=== PATIENT | male | born 1945 | race Caucasian/White ===

== ENCOUNTER 2018-03-22 15:43 | Emergency (ER) | payer OTHER ==
[~2018-03-22] VITALS: Ht 172.7 cm; Wt 106.6 kg
[~2018-03-22 15:43] MED LIST: LASIX40 MG PO
[2018-03-22] MEDS ORDERED: TERAZOSIN HCL2 M1 PO (15:51)
[2018-03-22] MEDS ORDERED: QUETIAPINE FUMA25 M1 PO (15:52)
[2018-03-22] MEDS ORDERED: Diltiazem180 MG PO (15:52)
[2018-03-22] MEDS ORDERED: PANTOPRAZOLE SO40 MG PO (15:54)
[2018-03-22] MEDS ORDERED: DICLO GEL1 EACH T (15:54)
[2018-03-22] MEDS ORDERED: AMITRIPTYLINE10 MG PO (15:55)
[2018-03-22] MEDS ORDERED: NEURONTIN100 MG PO (15:55)
[2018-03-22] MEDS ORDERED: WARFARIN SOD5 MG PO (15:55)
[2018-03-22] MEDS ORDERED: LANTUS SOL100 UNIT/1 SC (15:57)
[2018-03-22] MEDS ORDERED: LIPITOR40 MG PO (15:57)
[2018-03-22] MEDS ORDERED: SEN-O-TABS8.6 MG PO (15:58)
[2018-03-22] MEDS ORDERED: RENAL VITAMIN0.8 MG PO (15:58)
[2018-03-22] MEDS ORDERED: MONTELUKAST SOD10 MG PO (15:59)
[2018-03-22] MEDS ORDERED: CITALOPRAM20 MG PO (15:59)
[2018-03-22] MEDS ORDERED: DEMADEX20 M1 PO (16:01)
[2018-03-22] MEDS ORDERED: HUMIRA CRO40 MG/0.8 SQ (16:01)
[2018-03-22] MEDS ORDERED: ONDANSETRON4 MG SL (16:01)
[2018-03-22 16:32] LABS: BASO # 0.1 10*3/uL (0.0-0.1); BASO % 0.6 % (0.0-1.0); EOS # 0.4 10*3/uL (0.0-0.4); HEMATOCRIT 29.6 % (42.0-52.0); HEMOGLOBIN 10.2 g/dl (14.0-18.0); LYMPH # 2.7 10*3/uL (1.3-4.4); MEAN CELL VOLUME 102.4 fl (80.0-94.0); MEAN CORPUSCULAR HGB 35.3 pg (27.0-31.0); MEAN CORPUSCULAR HGB CONC 34.5 g/dl (33.0-37.0); MEAN PLATELET VOLUME 10.1 fl (9.6-12.3); MONO # 0.8 10*3/uL (0.1-1.0); MONO % 10.3 % (3.0-9.0); NEUT # 4.1 10*3/uL (2.3-7.9); NEUT % 50.5 % (47.0-73.0); NUCLEATED RED BLOOD CELL 0.2 % (0.0-0.0); PLATELET COUNT AUTOMATED 241 10*3/uL (130-400); RED BLOOD COUNT 2.89 10*6/uL (4.50-5.90); RED CELL DISTRI WIDTH 14.3 % (0-14.5); WHITE BLOOD COUNT 8.1 10*3/uL (4.8-10.8)
[2018-03-22 16:54] LABS: ALBUMIN 3.6 gm/dl (3.1-4.5); CREATININE 6.42 mg/dL (0.70-1.30); TOTAL PROTEIN 7.9 gm/dL (6.4-8.2)
== END 2018-03-22 17:24 | disposition home or self-care (01) ==
LOC: ED 15:43
PROVIDERS: Physician Assistant
DX: R11.2 Nausea with vomiting, unspecified (principal); G89.29 Other chronic pain; E11.40 Type 2 diabetes mellitus with diabetic neuropathy, unspecified; E11.22 Type 2 diabetes mellitus with diabetic chronic kidney disease; N18.6 End stage renal disease; M45.9 Ankylosing spondylitis of unspecified sites in spine; Z88.8 Allergy status to other drugs, medicaments and biological substances; Z79.01 Long term (current) use of anticoagulants; Z79.4 Long term (current) use of insulin; Z79.899 Other long term (current) drug therapy; Z99.2 Dependence on renal dialysis

== ENCOUNTER 2018-08-16 15:25 | Inpatient (IN) | payer MEDICARE, OTHER ==
[2018-08-16] VITALS (8 sets, daily range): BP systolic 106–192; BP diastolic 58–84
[~2018-08-16] VITALS: Ht 172.7 cm; Wt 101.6 kg
--- NOTE | ~2018-08-16 | PR ---
[place], [place] PROGRESS NOTE NAME: PARAM BARTH UNIT #: [id number] ROOM: 525 DOCTOR: ABIODUN ROJAS MD BIRTHDATE: [birth year] DOS: 08/18/2018 REASON FOR VISIT: Chest pain, hypertension and CHF. HISTORY OF PRESENT ILLNESS: The patient is feeling better. Denies any chest pain or palpitations. Breathing is much better. No PND, no orthopnea. He is wearing BiPAP at the time of my visit to him. REVIEW OF SYSTEMS: Review of the 10 systems negative except as mentioned above. PHYSICAL EXAMINATION: VITAL SIGNS: Blood pressure 120/72, pulse 70, respiratory rate 18, weight 101.6 kilos, BMI 34. RHYTHM STRIPS: The patient in sinus rhythm. PHYSICAL EXAMINATION: GENERAL: The patient is alert, comfortable, in no acute distress. HEENT: Pupils are round and equal, no jaundice. NECK: Supple, no distended neck veins, no carotid bruit. CHEST: Symmetrical, nontender. LUNGS: Clear to auscultation bilaterally. HEART: Regular rhythm, no S3. ABDOMEN: Obese, nontender. Bowel sounds normal. EXTREMITIES: Showed trace edema. Distal pulses are palpable. SKIN: Warm and dry. No cyanosis, no clubbing. RECTAL: Deferred. MEDICATIONS AND LABORATORY DATA: Reviewed. IMPRESSION: 1. Chest pain, myocardial infarction ruled out. 2. Hypertension, stable. 3. Acute on chronic diastolic heart failure. 4. Endstage renal disease, on hemodialysis. 5. Obstructive sleep apnea. RECOMMENDATIONS: The patient is currently feeling better. He wanted to go home. He would like to follow with his MI flap curer for further testing including outpatient stress test. Currently, the patient is chest pain free. Cardiac troponins are negative x 3. His blood pressure and heart rates are stable. He can be discharged home on his aspirin, metoprolol, isosorbide, and Lipitor. No family at bedside at the time of my examination. The patient counseled for risk factor modification including diet, exercise and weight loss. [place], [place] PROGRESS NOTE NAME: PARAM BARTH UNIT #: [id number] ROOM: 525 DOCTOR: ABIODUN ROJAS MD BIRTHDATE: [birth year] ABIODUN ROJAS MD CM:SPARKLE [id number] ABIODUN ROJAS MD 08/19/18 1816 interface
--- NOTE | ~2018-08-16 | EKG ---
[place], [place] ELECTROCARDIOGRAM REPORT NAME: PARAM BARTH UNIT #: [id number] ROOM: 525 DOCTOR: GALINA DRAFT REPORT BIRTHDATE: [birth year] [facility] Test Date: 2018-08-16 Test Time: 18:20:56 Pat Name: PARAM BARTH Department: 5E Room: 525 Gender: M Center Sales And Service Associate: Eric Castillo : 1945 Requested By: JAMISON RAMON Order Number: [id number] Reading MD: Ugo Harris MD Measurements Intervals [place] Rate: 69 P: 4 AK: 232 QRS: -8 QRSD: 95 T: 63 QT: 453 QTc: 486 Interpretive Statements Sinus rhythm Prolonged AK interval Anteroseptal infarct, old Electronically Signed On 08-17-2018 10:49:59 PST by Ugo Harris MD CM:EKGRPT:ELECTROCARDIOGRAM REPORT [id number] 1049 JAMISON BARTON DRAFT REPORT JAMISON RAMON DO
--- NOTE | ~2018-08-16 | EKG ---
[place], [place] ELECTROCARDIOGRAM REPORT NAME: PARAM BARTH UNIT #: [id number] ROOM: 525 DOCTOR: GALINA DRAFT REPORT BIRTHDATE: [birth year] [facility] Test Date: 2018-08-16 Test Time: 15:29:24 Pat Name: PARAM BARTH Department: 5E Room: 525 Gender: M Spray Painter: MIRIAM : 1945 Requested By: JAMISON RAMON Order Number: [id number] Reading MD: Ugo Harris MD Measurements Intervals [place] Rate: 70 P: 31 IA: 211 QRS: -8 QRSD: 93 T: 66 QT: 430 QTc: 464 Interpretive Statements Sinus rhythm Anteroseptal infarct, old Electronically Signed On 08-17-2018 10:48:55 PST by Ugo Harris MD CM:EKGRPT:ELECTROCARDIOGRAM REPORT [id number] 1048 JAMISON BARTON DRAFT REPORT JAMISON RAMON DO
--- NOTE | ~2018-08-16 | PR ---
[place], [place] PROGRESS NOTE NAME: PARAM BARTH UNIT #: [id number] ROOM: 525 DOCTOR: SANA KHAN,DIONNE Quispe BIRTHDATE: [birth year] DOS: 08/18/2018 NEPHROLOGY PROGRESS NOTE SUBJECTIVE: The patient was seen in followup of chronic kidney disease. No acute events. She had dialysis yesterday. was quite adamant in her beliefs as to what the trigger for his symptoms are, but dietary and fluid indiscretions are certainly playing a role and just explaining that was very difficult. The patient was pleasant today, understood what was going on. No other events reported this evening. Plan for next dialysis on Monday. OBJECTIVE: VITAL SIGNS: 132/72, 18, 70, 97.8. Exam is unchanged. LABORATORY DATA: Laboratories are reviewed. White count is normal, hemoglobin is 11, which is good for ESRD. Platelets normal. Sodium 135, potassium 3.9, chloride 93, bicarbonate 35, BUN 26, creatinine 5, glucose 145. ASSESSMENT AND PLAN: 1. End-stage renal disease. Next dialysis on Monday. 2. Volume and hypertension. Limit fluid gains and put on a fluid restriction 36 ounces orally daily. 3. Anemia, acceptable. 4. Metabolic bone disease. Follow calcium and phosphorus and continue home medications. Binders as needed. PhosLo levels are acceptable. 5. Hypertension, fair controlled, better and likely need less medications if his volume status improves. Stable for discharge from a renal standpoint. DIONNE HOOD MD CM:PNTRANS [id number] DIONNE HOOD MD 08/19/18 013 interface
--- NOTE | ~2018-08-16 | EKG ---
[place], [place] ELECTROCARDIOGRAM REPORT NAME: PARAM BARTH UNIT #: [id number] ROOM: 525 DOCTOR: GALINA DRAFT REPORT BIRTHDATE: [birth year] [facility] Test Date: 2018-08-16 Test Time: 21:19:33 Pat Name: PARAM BARTH Department: 5E Room: [facility] Gender: M Office Supervisor: Li Gomez : 1945 Requested By: JAMISON RAMON Order Number: [id number] Reading MD: Ugo Harris MD Measurements Intervals [place] Rate: 66 P: 32 AK: 241 QRS: -7 QRSD: 102 T: 55 QT: 478 QTc: 501 Interpretive Statements Sinus rhythm Prolonged AK interval Prolonged QT interval Electronically Signed On 08-17-2018 10:51:03 PST by Ugo Harris MD CM:EKGRPT:ELECTROCARDIOGRAM REPORT 1051 JAMISON BARTON DRAFT REPORT JAMISON RAMON DO
[~2018-08-16 15:25] MED LIST changes: +AMITRIPTYLINE10 MG PO; +CITALOPRAM20 MG PO; +DEMADEX20 M1 PO; +DICLO GEL1 EACH T; +Diltiazem180 MG PO; +HUMIRA CRO40 MG/0.8 SQ; +LANTUS SOL100 UNIT/1 SC; +LIPITOR20 MG PO; +MONTELUKAST SOD10 MG PO; +NEURONTIN100 MG PO; +ONDANSETRON4 MG SL; +PANTOPRAZOLE SO40 MG PO; +QUETIAPINE FUMA25 M1 PO; +RENAL VITAMIN0.8 MG PO; +SEN-O-TABS8.6 MG PO; +TERAZOSIN HCL2 M1 PO; +WARFARIN SOD5 MG PO
[2018-08-16 15:57] LABS: BASO # 0.1 10*3/uL (0.0-0.1); BASO % 0.6 % (0.0-1.0); EOS # 0.3 10*3/uL (0.0-0.4); EOS % 3.8 % (1.0-4.0); HEMATOCRIT 29.7 % (42.0-52.0); HEMOGLOBIN 10.4 g/dl (14.0-18.0); LYMPH % 35.8 % (27.0-41.0); MEAN CELL VOLUME 94.6 fl (80.0-94.0); MEAN CORPUSCULAR HGB 33.1 pg (27.0-31.0); MEAN PLATELET VOLUME 10.3 fl (9.6-12.3); MONO # 0.8 10*3/uL (0.1-1.0); NEUT # 4.2 10*3/uL (2.3-7.9); NEUT % 49.6 % (47.0-73.0); PLATELET COUNT AUTOMATED 213 10*3/uL (130-400); RED BLOOD COUNT 3.14 10*6/uL (4.50-5.90); WHITE BLOOD COUNT 8.4 10*3/uL (4.8-10.8)
[2018-08-16 16:05] LABS: ACT PARTIAL THROMBO TIME 22.6 SECONDS (20.8-31.5)
[2018-08-16 16:14] LABS: ALBUMIN 3.5 gm/dl (3.1-4.5); ALKALINE PHOSPHATASE 79 U/L (45-117); BUN 32 mg/dl (7-24); CHLORIDE 96 mmol/L (98-107); CREATININE 6.11 mg/dL (0.70-1.30); POTASSIUM 3.9 mmol/L (3.5-5.1); SGOT/AST 41 IU/L (3-35); SGPT/ALT 72 U/L (12-78); SODIUM 138 mmol/L (136-145); TOTAL PROTEIN 7.4 gm/dL (6.4-8.2)
[2018-08-16 16:22] LABS: TROPONIN I < 0.015 ng/ml (<0.045)
--- NOTE | 2018-08-16 19:06 | NUR ---
NURSE TO NURSE REPORT GIVEN TO THIS RN.
--- NOTE | 2018-08-16 21:25 | NUR ---
NO WOUNDS NOTED.PT DOES HAVE BANDAID OVER LEFT ARM FISTULA SITE WHERE HE REPORTS HE HAD DIALYSIS YESTERDAY.PT REFUSES TO ALLOW THIS RN TO REMOVE BANDAID DUE TO FEAR OF SCAB COMING OFF AND REBLEEDING.
--- NOTE | 2018-08-16 21:35 | NUR ---
NURSE TO NURSE REPORT GIVEN TO MARKUS CALABRESE.PT TO BE TRANSPORTED TO FLOOR VIA STRETCHER BY MARKUS TORO.
--- NOTE | 2018-08-16 21:43 | NUR ---
A 73, admitted to 5E, under the services of LISANDRO Mccallum DO with a diagnosis of CHEST PAIN. Chief complaint is CHEST PAIN. Patient arrived via bed from ER. Monitor applied. Initial assessment completed. Vital signs taken and recorded. LISANDRO MCCALLUM DO notified of admission to the unit. Orders received. See assessment for past medical history, medications and allergies. Patient and/or family oriented to unit. [facility] visitation policy reviewed. Clothing/patient valuable form completed. RICCI WIGGINS
[2018-08-16] MEDS ORDERED: ASPIRIN ADULT L81 M1 PO (22:56)
[2018-08-16] MEDS ORDERED: TYLENOL325 M1 PO (22:57)
--- NOTE | 2018-08-16 23:00 | NUR ---
DR. ALEMAN NOTIFIED THAT FAMILY IS REQUESTING BIPAP.
[2018-08-16] MEDS ORDERED: CALCIUM ACETAT667 M2 PO (23:03)
[2018-08-16] MEDS ORDERED: HYDRALAZINE HYD50 MG PO (23:04)
[2018-08-16] MEDS ORDERED: LOPERAMIDE HCL2 MG PO (23:06)
--- NOTE | 2018-08-16 23:07 | NUR ---
MED LIST REVIEWED WITH . MED LIST FROM HOME PLACED ON CHART.
[2018-08-17] VITALS: BP 167/55
--- NOTE | 2018-08-17 02:05 | NUR ---
PT PLACED ON BIPAP
--- NOTE | 2018-08-17 04:46 | NUR ---
REQUESTING THAT THE [facility] [place] BE CALLED TO NOTIFY DR. PEDERSEN TO NOTIFY HIM AF PATIENT ADMISSION, CP, HTN. ALSO TO GET RECORDS AND SETTINGS FOR DIALYSIS. NUMBER [phone].
--- NOTE | 2018-08-17 05:03 | NUR ---
SPOKE WITH ERIC AT DR. BOYCE ANSWERING SERVICE NOTIFIED OF CONSULT PER ORDER
--- NOTE | 2018-08-17 05:35 | NUR ---
ANAHY NOTIFIED OF CONSULT FOR DR. HOOD.
--- NOTE | 2018-08-17 07:28 | NUR ---
pulse ox on 97% on bipap, pt request to be taken off bipap, pt. does not use o2. RN aware.
[2018-08-17 08:01] VITALS: BP 150/70
[2018-08-17 09:58] LABS: ALBUMIN 3.5 gm/dl (3.1-4.5); CREATININE 7.07 mg/dL (0.70-1.30); PHOSPHOROUS 3.2 mg/dL (2.5-4.9); POTASSIUM 3.3 mmol/L (3.5-5.1); TOTAL PROTEIN 7.6 gm/dL (6.4-8.2)
[2018-08-17 09:59] LABS: FREE T4 1.02 ng/dl (0.76-1.46)
[2018-08-17 10:04] LABS: THYROID STIM HORMONE (HS) 0.914 uIU/ml (0.358-4.75)
[2018-08-17 10:10] LABS: BASO # 0.1 10*3/uL (0.0-0.1); BASO % 0.7 % (0.0-1.0); EOS # 0.3 10*3/uL (0.0-0.4); EOS % 4.7 % (1.0-4.0); HEMATOCRIT 30.5 % (42.0-52.0); HEMOGLOBIN 10.3 g/dl (14.0-18.0); LYMPH # 2.2 10*3/uL (1.3-4.4); LYMPH % 30.7 % (27.0-41.0); MEAN CORPUSCULAR HGB 32.1 pg (27.0-31.0); MEAN CORPUSCULAR HGB CONC 33.8 g/dl (33.0-37.0); MEAN PLATELET VOLUME 10.9 fl (9.6-12.3); MONO # 0.6 10*3/uL (0.1-1.0); MONO % 8.7 % (3.0-9.0); NEUT % 54.9 % (47.0-73.0); PLATELET COUNT AUTOMATED 203 10*3/uL (130-400); RED BLOOD COUNT 3.21 10*6/uL (4.50-5.90); RED CELL DISTRI WIDTH 13.7 % (0-14.5); WHITE BLOOD COUNT 7.3 10*3/uL (4.8-10.8)
--- NOTE | 2018-08-17 15:04 | NUR ---
Social Service Assistant in to talk to patient. Patient states lives at HOME with . There are SOME steps in the home. Physician: DORITA Pharmacy: OR Home health services: NONE Patient's level of ADLs: MINIMAL ASSIST Patient has working utilities: YES DME: CANE SCOOT[employer] Follow-up physician's appointment after d/c: WILL BE MADE BY HOSPITALIST NURSE DIRECTOR ON DISCHARGE Does patient want to access PORTAL?: NO Discharge plan PT STATES HE LIVES HOME WITH HIS WHO HELPS TAKE CARE OF HIM. DENIES ANY NEEDS ON DISCHARGE. STATES HE USES A CANE, AND SOMETIMES A SCOOTER WHEN NEEDED. WILL CONTINUE TO FOLLOW.. JASON PIERRE
[2018-08-17] MEDS ORDERED: REGLAN10 M1 PO (15:07)
[2018-08-17] MEDS ORDERED: RENAL CAPS SOFTG1 MG PO (15:08)
[2018-08-17 16:00] VITALS: BP 124/56
[2018-08-17 20:00] VITALS: BP 134/60
--- NOTE | 2018-08-17 20:15 | NUR ---
PT SLEEPING IN BED, AWAKENS EASILY. RESP-EASY AND REGULAR. AT HIS SIDE. NO C/O AT THIS TIME. CALL LIGHT IN REACH. SEE SHIFT ASSESSMENT.
--- NOTE | 2018-08-17 21:30 | NUR ---
SLEEPING IN BED, AWAKENS EASILY. BSG-138, SEE EMAR. TOLERATED ROUTINE MEDS WITH NO PROBLEM. CALL LIGHT IN REACH.
--- NOTE | 2018-08-17 23:27 | NUR ---
Patient set up on home cpap unit
[2018-08-18] VITALS: BP 137/66
--- NOTE | 2018-08-18 00:10 | NUR ---
PT SLEEPING IN BED, AWAKENS EASILY. C-PAP IN USE. NO C/O. CALL LIGHT IN REACH. SEE SHIFT ASSESSMENT.
--- NOTE | 2018-08-18 04:00 | NUR ---
SLEEPING IN BED WITH C-PAP IN USE. RESP0-EASY AND REGULAR. CALL LIGHT IN REACH.
--- NOTE | 2018-08-18 05:45 | NUR ---
BSG-157, SEE EMAR. TOLERATED ROUTINE MED WITH NO PROBLEM. NO C/O AT THIS TIME. CALL LIGHT IN REACH.
[2018-08-18 05:53] VITALS: BP 120/72
[2018-08-18 06:27] LABS: BASO # 0.1 10*3/uL (0.0-0.1); BASO % 0.8 % (0.0-1.0); EOS # 0.4 10*3/uL (0.0-0.4); EOS % 4.8 % (1.0-4.0); LYMPH # 2.9 10*3/uL (1.3-4.4); MEAN CELL VOLUME 97.9 fl (80.0-94.0); MEAN CORPUSCULAR HGB 32.6 pg (27.0-31.0); MEAN CORPUSCULAR HGB CONC 33.3 g/dl (33.0-37.0); MEAN PLATELET VOLUME 10.8 fl (9.6-12.3); MONO # 0.7 10*3/uL (0.1-1.0); MONO % 9.2 % (3.0-9.0); NEUT # 3.8 10*3/uL (2.3-7.9); NEUT % 47.9 % (47.0-73.0); PLATELET COUNT AUTOMATED 222 10*3/uL (130-400); RED BLOOD COUNT 3.37 10*6/uL (4.50-5.90); RED CELL DISTRI WIDTH 13.7 % (0-14.5); WHITE BLOOD COUNT 7.9 10*3/uL (4.8-10.8)
[2018-08-18 07:01] LABS: POTASSIUM 3.9 mmol/L (3.5-5.1)
[2018-08-18 07:04] LABS: CREATININE 5.04 mg/dL (0.70-1.30)
[2018-08-18 08:00] VITALS: BP 132/72
--- NOTE | 2018-08-18 08:30 | NUR ---
Patient resting quietly with no c/o discomfort. Respirations easy and regular. Vital signs stable. No overt distress. ZACKARY LOPEZ R
[2018-08-18 12:00] VITALS: BP 138/57
[2018-08-18] MEDS ORDERED: METOPROLOL SUCC25 M2 PO (12:54)
[2018-08-18] MEDS ORDERED: IMDUR SA30 MG PO (12:54)
--- NOTE | 2018-08-18 16:15 | NUR ---
Discharge instructions reviewed with patient/family. Patient receptive and verbalizes understanding. Follow-up care arranged. Written instructions given to patient/family. ZACKARY LOPEZ
== END 2018-08-18 16:15 | disposition home or self-care (01) | DRG 205 ==
LOC: ED 15:25 → 5E 20:48 → EDHOLD 20:48 → 5E 21:05
PROVIDERS: Emergency Medicine; Family Medicine; Internal Medicine; ADMIT Internal Medicine
PROC: 5A1D70Z Performance of Urinary Filtration, Intermittent, Less than 6 Hours Per Day (ICD-10-PCS; principal; 2018-08-18)
PROC: 5A09357 Assistance with Respiratory Ventilation, Less than 24 Consecutive Hours, Continuous Positive Airway Pressure (ICD-10-PCS; principal; 2018-08-18)
DX: M94.0 Chondrocostal junction syndrome [Tietze] (principal); N18.6 End stage renal disease; I13.2 Hypertensive heart and chronic kidney disease with heart failure and with stage 5 chronic kidney disease, or end stage renal disease; J45.909 Unspecified asthma, uncomplicated; I50.33 Acute on chronic diastolic (congestive) heart failure; M45.9 Ankylosing spondylitis of unspecified sites in spine; R79.82 Elevated C-reactive protein (CRP); M89.8X9 Other specified disorders of bone, unspecified site; I44.0 Atrioventricular block, first degree; D64.9 Anemia, unspecified; G47.33 Obstructive sleep apnea (adult) (pediatric); E11.65 Type 2 diabetes mellitus with hyperglycemia; E87.8 Other disorders of electrolyte and fluid balance, not elsewhere classified; E11.22 Type 2 diabetes mellitus with diabetic chronic kidney disease; I48.91 Unspecified atrial fibrillation; E11.42 Type 2 diabetes mellitus with diabetic polyneuropathy; Z99.2 Dependence on renal dialysis; Z79.4 Long term (current) use of insulin; Z88.2 Allergy status to sulfonamides; Z88.8 Allergy status to other drugs, medicaments and biological substances; Z91.018 Allergy to other foods; Z90.49 Acquired absence of other specified parts of digestive tract; Z82.49 Family history of ischemic heart disease and other diseases of the circulatory system; Z79.82 Long term (current) use of aspirin; Z79.899 Other long term (current) drug therapy; Z79.01 Long term (current) use of anticoagulants

== ENCOUNTER 2019-10-17 15:28 | Inpatient (IN) | payer OTHER ==
[~2019-10-17] VITALS: Ht 167.6 cm; Wt 103.6 kg
[2019-10-17] VITALS (7 sets, daily range): BP systolic 148–179; BP diastolic 66–86
[~2019-10-17 15:28] MED LIST changes: +ASPIRIN ADULT L81 M1 PO; +CALCIUM ACETAT667 M2 PO; -DEMADEX20 M1 PO; +HYDRALAZINE HYD50 MG PO; +IMDUR SA30 MG PO; +LOPERAMIDE HCL2 MG PO; +METOPROLOL SUCC25 M2 PO; +REGLAN10 M1 PO; +RENAL CAPS SOFTG1 MG PO; +TORSEMIDE20 MG PO; +TYLENOL325 M1 PO
[2019-10-17 16:33] LABS: BASO # 0.1 10*3/uL (0.0-0.1); BASO % 0.5 % (0.0-1.0); EOS # 0.5 10*3/uL (0.0-0.4); EOS % 5.3 % (1.0-4.0); HEMATOCRIT 33.5 % (42.0-52.0); HEMOGLOBIN 11.3 g/dl (14.0-18.0); LYMPH # 3.3 10*3/uL (1.3-4.4); LYMPH % 34.9 % (27.0-41.0); MEAN CORPUSCULAR HGB 35.1 pg (27.0-31.0); MEAN CORPUSCULAR HGB CONC 33.7 g/dl (33.0-37.0); MONO % 10.2 % (3.0-9.0); NEUT # 4.6 10*3/uL (2.3-7.9); NEUT % 48.8 % (47.0-73.0); PLATELET COUNT AUTOMATED 219 10*3/uL (130-400); RED BLOOD COUNT 3.22 10*6/uL (4.50-5.90); RED CELL DISTRI WIDTH 14.5 % (0-14.5); WHITE BLOOD COUNT 9.4 10*3/uL (4.8-10.8)
[2019-10-17 16:42] LABS: ACT PARTIAL THROMBO TIME 24.5 SECONDS (20.0-32.1)
[2019-10-17 16:49] LABS: ALBUMIN 3.6 gm/dl (3.1-4.5); ALKALINE PHOSPHATASE 55 U/L (45-117); BUN 37 mg/dl (7-24); CHLORIDE 97 mmol/L (98-107); CREATININE 6.46 mg/dL (0.70-1.30); POTASSIUM 4.6 mmol/L (3.5-5.1); SGOT/AST 25 IU/L (3-35); SGPT/ALT 42 U/L (12-78); SODIUM 138 mmol/L (136-145); TOTAL PROTEIN 7.6 gm/dL (6.4-8.2); TROPONIN I < 0.015 ng/ml (<0.045)
[2019-10-17] MEDS ORDERED: KETOCONAZOLE S120 M1 T (20:45)
[2019-10-17] MEDS ORDERED: COREG12.5 M1 PO (20:46)
[2019-10-18] VITALS: BP 166/65
[2019-10-18 06:28] LABS: BASO # 0.1 10*3/uL (0.0-0.1); BASO % 0.8 % (0.0-1.0); EOS # 0.5 10*3/uL (0.0-0.4); EOS % 6.6 % (1.0-4.0); HEMATOCRIT 34.6 % (42.0-52.0); HEMOGLOBIN 11.5 g/dl (14.0-18.0); LYMPH # 2.7 10*3/uL (1.3-4.4); LYMPH % 35.2 % (27.0-41.0); MEAN CELL VOLUME 103.6 fl (80.0-94.0); MEAN CORPUSCULAR HGB 34.4 pg (27.0-31.0); MEAN CORPUSCULAR HGB CONC 33.2 g/dl (33.0-37.0); MEAN PLATELET VOLUME 10.6 fl (9.6-12.3); MONO # 0.7 10*3/uL (0.1-1.0); MONO % 8.7 % (3.0-9.0); NEUT # 3.7 10*3/uL (2.3-7.9); NEUT % 48.4 % (47.0-73.0); PLATELET COUNT AUTOMATED 218 10*3/uL (130-400); RED BLOOD COUNT 3.34 10*6/uL (4.50-5.90); RED CELL DISTRI WIDTH 14.1 % (0-14.5); WHITE BLOOD COUNT 7.7 10*3/uL (4.8-10.8)
[2019-10-18 06:42] LABS: ACT PARTIAL THROMBO TIME 24.8 SECONDS (20.0-32.1)
[2019-10-18 07:01] LABS: ALBUMIN 3.8 gm/dl (3.1-4.5); CREATININE 7.32 mg/dL (0.70-1.30); FREE T4 0.86 ng/dl (0.76-1.46); PHOSPHOROUS 4.5 mg/dL (2.5-4.9); POTASSIUM 4.2 mmol/L (3.5-5.1); TOTAL PROTEIN 7.8 gm/dL (6.4-8.2)
[2019-10-18 07:13] LABS: VITAMIN D, 25-HYDROXY 25.7 ng/mL (30-100)
[2019-10-18 12:00] VITALS: BP 179/80
[2019-10-18 16:00] VITALS: BP 128/60
== END 2019-10-18 19:09 | disposition home or self-care (01) | DRG 205 ==
LOC: ED 15:28 → EDHOLD 19:01 → 4E 19:01
PROVIDERS: Internal Medicine; Nurse Practitioner Family; ADMIT Internal Medicine
PROC: 5A1D70Z Performance of Urinary Filtration, Intermittent, Less than 6 Hours Per Day (ICD-10-PCS; principal; 2019-10-18)
DX: M94.0 Chondrocostal junction syndrome [Tietze] (principal); N18.6 End stage renal disease; I24.9 Acute ischemic heart disease, unspecified; I13.2 Hypertensive heart and chronic kidney disease with heart failure and with stage 5 chronic kidney disease, or end stage renal disease; I50.30 Unspecified diastolic (congestive) heart failure; M79.18 Myalgia, other site; K21.9 Gastro-esophageal reflux disease without esophagitis; F41.9 Anxiety disorder, unspecified; E87.8 Other disorders of electrolyte and fluid balance, not elsewhere classified; E78.2 Mixed hyperlipidemia; D53.9 Nutritional anemia, unspecified; E11.65 Type 2 diabetes mellitus with hyperglycemia; E11.42 Type 2 diabetes mellitus with diabetic polyneuropathy; J45.909 Unspecified asthma, uncomplicated; E11.22 Type 2 diabetes mellitus with diabetic chronic kidney disease; K22.70 Barrett's esophagus without dysplasia; Z99.2 Dependence on renal dialysis; Z90.49 Acquired absence of other specified parts of digestive tract; Z82.49 Family history of ischemic heart disease and other diseases of the circulatory system; Z88.2 Allergy status to sulfonamides; Z83.3 Family history of diabetes mellitus; Z91.018 Allergy to other foods; Z79.899 Other long term (current) drug therapy; Z79.82 Long term (current) use of aspirin